=== PATIENT | male | born 1935 | race Caucasian/White ===

== ENCOUNTER 2019-10-14 13:26 | Inpatient (IN) ==
[2019-10-14] MEDS ORDERED: DEXAMETHASONE 4 MG/1 ML VIAL IV STA (14:33)
[2019-10-14] MEDS ORDERED: SODIUM CHLORIDE 0.9% 1,000 ML IV STA (14:33)
[2019-10-14] MEDS ORDERED: AZITHROMYCIN 250 MG TABLET PO STA (14:37)
[2019-10-14] MEDS ORDERED: cefTRIAXone 1,000 MG in SODIUM CHLORIDE 0.9% 100 ML IV STA (14:37)
[2019-10-14 15:12] LABS: Basophils % 0.3 % (0.0-0.8); Eosinophils % 0.2 % (0.00-10.9); Hematocrit 42.4 VOL% (42.0-52.0); Hemoglobin 13.9 GM/DL (14.0-18.0); Immature Granulocytes Absolute 0.12 #; Lymphocytes % 16.3 % (21.2-54.2); Mean Corpuscular HGB Conc 32.8 GM/DL (32-36); Mean Corpuscular Volume 104.4 FL (87-102); Mean Platelet Volume 12.6 FL (9.6-12.0); Monocytes % 56.4 % (1.7-12.7); Neutrophils % 24.8 % (38.7-73.9); Platelet Count 76 T/CUMM (130-400); Red Blood Count 4.06 MC/CUMM (3.8-5.5); Red Cell Distribution Width 13.2 % (9.3-17.3); White Blood Count 6.1 T/CUMM (4-12)
[2019-10-14 15:38] LABS: Albumin 3.6 G/DL (3.4-5.0); Bilirubin,Total 1.2 MG/DL (0.2-1.0); Calcium 8.6 MG/DL (8.5-10.1); Ferritin 285.6 ng/ml (26-388); Osmolality,Calculated 274.7 MOS/KG (273-304); Total Protein 7.3 G/DL (6.4-8.3)
[2019-10-14 15:45] LABS: Lymphocytes 16 % (20-55); Segmented Neutrophils 27 % (50-85); Total Cells Counted 100
[2019-10-14 15:46] LABS: Platelet Estimate Decreased
[2019-10-14 15:49] LABS: Apearance,Urine CLEAR (Clear); Bilirubin,Urine Negative (Negative); Blood, Urine Negative (Negative); Glucose,Urine (UA) Negative (Negative); Ketones,Urine Negative (Negative); Mucus,Urine Occasional /LPF (Occasional); Nitrite,Urine Negative (Negative); Protein,Urine Negative; RBC,Urine 2 /HPF (0-4); Urine Color Yellow (Yellow); Urine Specific Gravity 1.016 (1.001-1.035); Urine Urobilinogen < 2.0 EU/DL (0.2-1.0)
[2019-10-14] MEDS ORDERED: DEXTROSE 50% 25 GM/50 ML VIAL IV PRN ×2 (16:38→17:20)
[2019-10-14] MEDS ORDERED: DOCUSATE SODIUM 100 MG CAPSULE PO PRN (16:38)
[2019-10-14] MEDS ORDERED: ONDANSETRON 4 MG/2 ML VIAL IV PRN (16:38)
[2019-10-14] MEDS ORDERED: ACETAMINOPHEN 325 MG TABLET PO PRN (16:38)
[2019-10-14] MEDS ORDERED: GLUCAGON 1 MG VIAL IM PRN (16:38)
[2019-10-14] MEDS ORDERED: ENOXAPARIN 40 MG/0.4 ML SYRINGE SUBCUT SCH (17:00)
[2019-10-14] MEDS ORDERED: hydrALAZINE 20 MG/1 ML VIAL IV PRN (17:20)
[2019-10-14] MEDS ORDERED: ALUMINUM/MAGNES/SIMETH MAX STR 30 ML UDCUP PO PRN (17:20)
[2019-10-14] MEDS ORDERED: CALCIUM CARBONATE CHEW 500 MG TABLET PO PRN (17:20)
[2019-10-14] MEDS ORDERED: LACTULOSE 20 GM/30 ML UDCUP PO PRN (17:20)
[2019-10-14] MEDS ORDERED: traZODone 50 MG TABLET PO PRN (17:20)
[2019-10-14] MEDS ORDERED: SIMETHICONE CHEW 125 MG TABLET PO PRN (17:20)
[2019-10-14] MEDS: LATANOPROST 0.005% OPH SOLN 2.5 ML BOTTLE BOTH EYES SCH (21:58)
[2019-10-14] MEDS: ENOXAPARIN 40 MG/0.4 ML SYRINGE SUBCUT SCH (21:58)
[2019-10-14] MEDS: TIMOLOL 0.5% OPH SOLN 5 ML BOTTLE BOTH EYES SCH (21:58)
[2019-10-14] MEDS: ZALEPLON 5 MG CAPSULE PO PRN (22:50)
[2019-10-15 05:30] LABS: Basophils % 0.4 % (0.0-0.8); Hematocrit 39.6 VOL% (42.0-52.0); Immature Granulocytes % 2.7 %; Immature Granulocytes Absolute 0.12 #; Lymphocytes # 0.9 10*3/uL (1.4-4.0); Lymphocytes % 18.9 % (21.2-54.2); Mean Corpuscular HGB Conc 32.8 GM/DL (32-36); Mean Corpuscular Volume 105.6 FL (87-102); Mean Platelet Volume 12.4 FL (9.6-12.0); Monocytes % 41.8 % (1.7-12.7); Neutrophils % 36.2 % (38.7-73.9); Platelet Count 103 T/CUMM (130-400); Red Blood Count 3.75 MC/CUMM (3.8-5.5); Red Cell Distribution Width 13.2 % (9.3-17.3); White Blood Count 4.5 T/CUMM (4-12)
[2019-10-15 06:16] LABS: Ferritin 274.8 ng/ml (26-388)
[2019-10-15 06:22] LABS: Hypochromasia 1+; Lymphocytes 23 % (20-55); Ovalocytes Slight; Platelet Estimate Decreased; Segmented Neutrophils 37 % (50-85); Total Cells Counted 100
[2019-10-15 06:43] LABS: Bilirubin,Total 1.2 MG/DL (0.2-1.0); Calcium 8.7 MG/DL (8.5-10.1); Osmolality,Calculated 280.4 MOS/KG (273-304); Total Protein 6.8 G/DL (6.4-8.3)
[2019-10-15 06:50] LABS: Risk Ratio 2.33; Thyroid Stimulating Hormone 0.213 uIU/ml (0.358-3.74); VLDL CHOLESTEROL 16.4 MG/DL
[2019-10-15] MEDS: allopurinoL 100 MG TABLET PO SCH (08:27)
[2019-10-15] MEDS: TAMSULOSIN 0.4 MG CAPSULE PO SCH (08:27)
[2019-10-15] MEDS: FINASTERIDE 5 MG TABLET PO SCH (08:27)
[2019-10-15] MEDS: ENOXAPARIN 40 MG/0.4 ML SYRINGE SUBCUT SCH ×2 (08:27→20:17)
[2019-10-15] MEDS: TIMOLOL 0.5% OPH SOLN 5 ML BOTTLE BOTH EYES SCH ×2 (08:28→20:17)
[2019-10-15] MEDS: AZITHROMYCIN 250 MG TABLET PO SCH (08:28)
[2019-10-15] MEDS: cefTRIAXone 1,000 MG in SYRINGE 1 EACH IV SCH (08:28)
[2019-10-15] MEDS: ZALEPLON 5 MG CAPSULE PO PRN (20:17)
[2019-10-15] MEDS: LATANOPROST 0.005% OPH SOLN 2.5 ML BOTTLE BOTH EYES SCH (20:17)
[2019-10-15] MEDS ORDERED: ATORVASTATIN 40 MG TABLET PO SCH (21:00)
[2019-10-15] MEDS ORDERED: COENZYME Q10 100 MG CAPSULE PO SCH (21:00)
[2019-10-16 06:31] LABS: Basophils % 0.3 % (0.0-0.8); Eosinophils % 0.1 % (0.00-10.9); Hematocrit 41.6 VOL% (42.0-52.0); Hemoglobin 13.5 GM/DL (14.0-18.0); Immature Granulocytes % 1.3 %; Lymphocytes # 1.4 10*3/uL (1.4-4.0); Lymphocytes % 18.8 % (21.2-54.2); Mean Corpuscular HGB Conc 32.5 GM/DL (32-36); Mean Corpuscular Volume 104.3 FL (87-102); Mean Platelet Volume 12.4 FL (9.6-12.0); Monocytes % 59.6 % (1.7-12.7); Neutrophils % 19.9 % (38.7-73.9); Platelet Count 118 T/CUMM (130-400); Red Blood Count 3.99 MC/CUMM (3.8-5.5); Red Cell Distribution Width 13.6 % (9.3-17.3); White Blood Count 7.6 T/CUMM (4-12)
[2019-10-16 06:48] LABS: Albumin 3.3 G/DL (3.4-5.0); Bilirubin,Total 0.6 MG/DL (0.2-1.0); Calcium 8.5 MG/DL (8.5-10.1); Osmolality,Calculated 279.4 MOS/KG (273-304); Total Protein 7.1 G/DL (6.4-8.3)
[2019-10-16 06:49] LABS: Ferritin 291.7 ng/ml (26-388)
[2019-10-16 07:38] LABS: Anisocytosis Slight; Band Neutrophils 3 % (0-10); Lymphocytes 19 % (20-55); Macrocytosis 1+; Platelet Estimate Adequate; Segmented Neutrophils 20 % (50-85); Smudge Cells Few; Total Cells Counted 100
[2019-10-16] MEDS: ENOXAPARIN 40 MG/0.4 ML SYRINGE SUBCUT SCH (09:18)
[2019-10-16] MEDS: allopurinoL 100 MG TABLET PO SCH (09:18)
[2019-10-16] MEDS: AZITHROMYCIN 250 MG TABLET PO SCH (09:18)
[2019-10-16] MEDS: FINASTERIDE 5 MG TABLET PO SCH (09:18)
[2019-10-16] MEDS: cefTRIAXone 1,000 MG in SYRINGE 1 EACH IV SCH (09:19)
[2019-10-16] MEDS: TAMSULOSIN 0.4 MG CAPSULE PO SCH (09:19)
[2019-10-16] MEDS: TIMOLOL 0.5% OPH SOLN 5 ML BOTTLE BOTH EYES SCH (09:29)
[2019-10-16 12:02] VITALS: BP 133/67
[2019-10-16] MEDS ORDERED: AZITHROMYCIN INJ 500 MG in SODIUM CHLORIDE 0.9% 250 ML IV SCH (18:00)
== END 2019-10-16 12:13 | disposition home health service (06) | DRG 179 ==
LOC: EDUNIT# → EDBD → N.ED 13:26 → N.EDINP 16:38 → N.2E 10-15 00:41
PROVIDERS: ADMIT Hospitalist; ATTEND Hospitalist